=== PATIENT | male | born 1980 | race American Indian/Alaskan Native ===

== ENCOUNTER 2017-10-06 10:55 | Emergency (ER) | payer OTHER ==
--- NOTE | 2017-10-06 11:16 | EDM.PDOC ---
ED HPI GENERAL MEDICAL PROBLEM - General Chief Complaint: Upper Extremity Injury/Pain Stated Complaint: R KNEE PAIN L WRIST PAIN Time Seen by Provider: 10/06/17 10:58 - History of Present Illness INITIAL COMMENTS - FREE TEXT/NARRATIVE: HISTORY AND PHYSICAL: History of present illness: Patient 36-year-old male sensory concern of medical clearance for incarceration he is in custody of law enforcement and on arrival here is complaints of right knee and left wrist pain elated to his arrest yesterday. He denies other trauma or concern Review of systems: As per history of present illness and below otherwise all systems reviewed and negative. Past medical history: As per history of present illness and as reviewed below otherwise noncontributory. Surgical history: As per history of present illness and as reviewed below otherwise noncontributory. Social history: No reported history of drug or alcohol abuse. Family history: As per history of present illness and as reviewed below otherwise noncontributory. Physical exam: HEENT: Atraumatic, normocephalic, pupils reactive, negative for conjunctival pallor or scleral icterus, mucous membranes moist, throat clear, neck supple, nontender, trachea midline. Lungs: Clear to auscultation, breath sounds equal bilaterally, chest nontender. Heart: S1S2, regular, negative for clicks, rubs, or JVD. Abdomen: Soft, nondistended, nontender. Negative for masses or hepatosplenomegaly. Negative for costovertebral tenderness. Pelvis: Stable nontender. Genitourinary: Deferred. Rectal: Deferred. Extremities: Left wrist has some mild tenderness is no gross deformity small swelling noted right knee is grossly stable no effusion restrictions are unremarkable Neuro: Awake, alert, oriented. Cranial nerves II through XII unremarkable. Cerebellum unremarkable. Motor and sensory unremarkable throughout. Exam nonfocal. Diagnostics: X-ray left wrist right knee Therapeutics: None Impression: #1 medically clear for incarceration Definitive disposition and diagnosis as appropriate pending reevaluation and review of above. Left Wrist Pain Score (Numeric/FACES): 8 - Related Data Allergies Allergy/AdvReac Type Severity Reaction Status Date / Time Penicillins Allergy Airway Verified 10/06/17 11:09 Tightness Home Meds: Home Meds . [No Known Home Meds] 10/06/17 [History] Past Medical History - Past Health History Medical/Surgical History: Denies Medical/Surgical History Social & Family History - Family History Family Medical History: Noncontributory - Tobacco Use Smoking Status *Q: Never Smoker - Caffeine Use Caffeine Use: Reports: Coffee, Energy Drinks, Soda - Recreational Drug Use Recreational Drug Use: No Review of Systems - Review of Systems Review Of Systems: ROS reveals no pertinent complaints other than HPI. ED EXAM, GENERAL - Physical Exam Exam: See Below (See dictation) Course - Vital Signs Last Recorded V/S: Last Vital Signs Temp 36.6 C 10/06/17 11:05 Pulse 85 10/06/17 11:05 Resp 18 10/06/17 11:05 BP 121/85 10/06/17 11:05 Pulse Ox 98 10/06/17 11:05 - Orders/Labs/Meds Orders: Active Orders 24 hr Category Date Time Status Knee 3V Rt [CR] Stat Exams 10/06/17 11:13 Ordered Wrist 2V Lt [CR] Stat Exams 10/06/17 11:13 Ordered Departure - Departure Time of Disposition: 11:15 Disposition: Home, Self-Care 01 Condition: Good Clinical Impression: Medical clearance for incarceration - Discharge Information Referrals: PCP,None [Primary Care Provider] - Additional Instructions: The following information is given to patients seen in the emergency department who are being discharged to home. This information is to outline your options for follow-up care. We provide all patients seen in our emergency department with a follow-up referral. The need for follow-up, as well as the timing and circumstances, are variable depending upon the specifics of your emergency department visit. If you don't have a primary care physician on staff, we will provide you with a referral. We always advise you to contact your personal physician following an emergency department visit to inform them of the circumstance of the visit and for follow-up with them and/or the need for any referrals to a consulting specialist. The emergency department will also refer you to a specialist when appropriate. This referral assures that you have the opportunity for followup care with a specialist. All of these measure are taken in an effort to provide you with optimal care, which includes your followup. Under all circumstances we always encourage you to contact your private physician who remains a resource for coordinating your care. When calling for followup care, please make the office aware that this follow-up is from your recent emergency room visit. If for any reason you are refused follow-up, please contact the [facility] emergency department at and asked to speak to the emergency department charge nurse. Follow-up primary medical doctor 1-2 days return as needed as discussed Motrin or Tylenol as directed - My Orders Last 24 Hours: My Active Orders 10/06/17 11:13 Knee 3V Rt [CR] Stat Wrist 2V Lt [CR] Stat - Assessment/Plan Last 24 Hours: My Active Orders 10/06/17 11:13 Knee 3V Rt [CR] Stat Wrist 2V Lt [CR] Stat
--- NOTE | 2017-10-07 18:46 | CR ---
EXAM DATE: 10/06/17 PATIENT'S AGE: 36 Patient: MORGAN HAMMOND Facility: [place], [place] Site . Site : 1980 Study: XRay Knee Right [id number]/[id number] 11:38:08 AM Ordering Physician: Conrado Jaime Final Report: INDICATION: Knee injury. TECHNIQUE: Three views right knee. COMPARISON: None FINDINGS: Bones: No acute fracture. No dislocation. No suspicious bone lesion. Joint spaces: Unremarkable. Soft tissues: Unremarkable. IMPRESSION: No acute osseous abnormality. Dictated by Jeffrey Moreno MD @ Oct 06 2017 12:49PM (Electronic Signature) Report Signed by Proxy. JENNIFER
--- NOTE | 2017-10-07 18:48 | CR ---
EXAM DATE: 10/06/17 PATIENT'S AGE: 36 Patient: MORGAN HAMMOND Facility: [place], [place] Site . Site : 1980 Study: XRay Extremity Left [id number]/21/2018 11:38:33 AM Ordering Physician: Conrado Jaime Final Report: INDICATION: Wrist injury. TECHNIQUE: Two views left wrist. COMPARISON: None FINDINGS: No acute fracture. No dislocation. There is ulnar positive variance. No suspicious bone lesions. Mild soft tissue swelling at the dorsal aspect of the radiocarpal joint. IMPRESSION: No acute osseous abnormality. Dictated by Jeffrey Moreno MD @ 10/06/2017 12:52:12 PM Dictated by: Jeffrey Moreno MD @ 10/06/2017 12:52:16 (Electronic Signature) Report Signed by Proxy. JENNIFER
== END 2017-10-06 13:03 | disposition home or self-care (01) ==
LOC: MW.ED 10:55
DX: Z02.89 Encounter for other administrative examinations (principal); M25.532 Pain in left wrist; M25.561 Pain in right knee; Z88.0 Allergy status to penicillin
CPT/HCPCS: 73100-26-LT; 73100-LT; 73562-26-RT; 73562-RT; 99283